=== PATIENT | female | born 1990 | race Caucasian/White ===

== ENCOUNTER 2016-05-29 06:04 | Emergency (ER) | payer MEDICAID, OTHER ==
[~2016-05-29] VITALS: Ht 157.5 cm; Wt 65.8 kg
[~2016-05-29 06:04] MED LIST: BENZ-13 PO; DOCU100C37 PO; IBUP-1780 PO; OXYC-202 PO; OXYC-465 PO; PREN1TAB71 PO; [UNRECOGNIZED DRUG - OTHER]
--- OUTSIDE RECORDS SUMMARY | 2016-05-29 06:10 | XMS REPORT | Continuity of Care Document ---
Author Author [facility] Organization [facility] Address Unknown Phone Unavailable Care Team Providers Care Vibration Technician Name Role Phone [facility] OF PCP Insurance Providers Payer Name Policy Number Subscriber Name Relationship Joyce Kancare Amerigrp [id number] Quyen Hyde 18 Self / Same As Patient Advance Directives Directive Response Recorded Date/Time Advance Directives No 09/29/15 11:40pm Health Care Power of Proprietary Trader No 09/29/15 11:40pm Organ Donor Yes 09/29/15 11:40pm Resuscitation Status Full Code 09/29/15 11:40pm Chief Complaint and Reason for Visit Chief Complaint CTXS,PAIN Reason for Visit labor Problems Active Problems Medical Problem Onset Date Status labor Unknown Acute Medications Current Home Medications Medication Dose Units Route Directions Days/Qty Instructions Start Date Vit/Iron Fumarate/Fa 1 Each 1 Each Oral Daily 09/30/15 Ibuprofen 800 Mg 800 Mg Oral Every 6 Hours 60 10/01/15 Oxycodone Hcl/Acetaminophen 1 Each 1-2 Tab Oral Every 4HRS as needed for Pain 60 10/01/15 Docusate Sodium 100 Mg 100 Mg Oral Twice A Day 60 10/01/15 Past Home Medications Medication Directions Ordered Status [Pren] , 09/11/15 Discontinued Benzonatate 100 Mg Capsule, 100 Mg Oral Twice A Day 09/11/15 Discontinued Social History Social History Problem Response Recorded Date/Time Alcohol Use Denies Use 09/30/2015 8:21am Recreational Drug Use Y Hx of THC use in 201409/30/2015 8:21am Recent Foreign Travel No 09/30/2015 8:21am Recent Infectious Disease Exposure No 09/30/2015 8:21am Hospitalization with Isolation Denies 10/01/2015 7:57pm 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 for patient in 4 weeks. Activity Per routine post vaginal delivery instructions. Diet as tolerated Patient may shower or tub bathe as desired. Care Plan Patient Instructions:: As directed Plan of Care Discharge Date 10/01/15 7:45pm Disposition 01 HOME, SELF-CARE Instructions/Education Provided VAGINAL DELIVERY DISCHARGE Forms Provided PDI Prescriptions See Medication Section Referrals MAGDALENA CHINO MD (Unspecified) - Address: [address] [place] [phone] Reason(s) for Referral: CALL FOR AN APPOINTMENT TO SEE DR. CHINO IN 4 WEEKS. CALL BEFORE IF HAVING ANY PROBLEMS OR QUESTIONS. Care Plan and Goals See Discharge Instructions Section Functional Status Query Response Date Recorded Patient Orientation Person Place Time Situation October 01, 2015 7:57pm Allergies, Adverse Reactions, Alerts No known allergies. Immunizations Name Given Type Hepatitis A No Historical Hepatitis B No Historical Tetanus Booster (TDap) More than 5yrs Historical Tdap 10/01/15 Administered Tdap 10/01/15 Administered Tdap 10/01/15 Administered Vital Signs Acute Vital Signs Vital Response Date/Time Temperature (Fahrenheit) 97.4 degrees F (97.6 - 99.5) 10/01/2015 7:45pm Temperature (Calculated Celsius) 36.95969 degrees C (36.4 - 37.5) 10/01/2015 3:09pm Temperature Source Tympanic 10/01/2015 7:45pm Pulse Rate (adult) 79 bpm (60 - 90) 10/01/2015 7:45pm Respiratory Rate 20 bpm (12 - 24) 10/01/2015 7:45pm O2 Sat by Pulse Oximetry 95 % (88 - 100) 10/01/2015 7:45pm Blood Pressure 115/71 mm Hg 10/01/2015 7:45pm Blood Pressure Mean 86 mm Hg 10/01/2015 3:09pm Pain Pain Intensity 2 10/01/2015 3:09pm Height (Feet) 5 feet 09/29/2015 11:40pm Height (Inches) 3.00 inches 09/29/2015 11:40pm Height (Calculated Centimeters) 160.288230 cm 09/29/2015 11:40pm Weight (Pounds) 187 pounds 09/29/2015 11:40pm Weight (Ounces) 3.0 oz 09/29/2015 11:40pm Weight (Calculated Grams) 53424.823 gm 09/29/2015 11:40pm Weight (Calculated Kilograms) 84.980315 kilograms 09/29/2015 11:40pm Calculated BMI 33.2 09/29/2015 11:40pm Results Laboratory Results Test Name Result Units Flags Reference Collection Date/Time Result Date/ Time Comments Group A Streptococcus Screen NEGATIVE NEGATIVE 09/11/2015 8:00am 8:13am Pending Laboratory Results Test Name Collection Date/Time Microbiology Results Procedure Source Result Collection Date/Time Result Date/Time Throat Culture Throat No Beta Strep isolated 09/11/2015 8:00am 09/12/2015 7:33am Procedures No known history of procedures. Encounters Encounter Location Arrival/Admit Date Discharge/Depart Date Attending Provider Discharged Inpatient [facility] 09/30/15 7:15am 7:45pm MAGDALENA CHINO MD Departed Emergency Room [facility] 09/11/15 7:26am 09/10 8:30am HAYLEY DAVIS MD Recent Diagnosis labor
--- NOTE | 2016-05-29 07:07 | Diagnostic Imaging Report ---
INDICATION: Fall with tailbone pain. FINDINGS: AP and lateral view show a fracture involving the sacrococcygeal region. There is minimal offset noted. Sacrum appears intact. SI joints are symmetrical. IMPRESSION: Fracture of the proximal coccyx at the sacrococcygeal region with minimal displacement. Dictated by: Dictated on workstation # [id number]
--- NOTE | 2016-05-29 07:19 | ED Trauma-Multisystem ---
General Chief Complaint: Trauma-Non Activation Stated Complaint: TAILBONE PAIN-FALL Nursing Triage Note: PT TO ED 6 W/ C/O TAILBONE PAIN. SEE TRAUMA ASSESSMENT Source of Information: Patient Exam Limitations: No Limitations History of Present Illness Time Seen by Provider: 07:14 Initial Comments The patient is a 26-year-old white female who presents with complaints of pain in the area of her tailbone. She reports that 2 nights ago she got up in the night to go to the bathroom. She apparently stepped on a child's toy and fell heavily on her bottom on the hardwood floor. She now experiences considerable pain to sit. She is able to walk or stand with less difficulty. Location Injury Occurred: HOME Occurred: Other Pain/Injury Location: Pelvis Method of Injury: Fall Allergies and Home Medications Allergies Coded Allergies: No Known Drug Allergies (Unverified , 12/21/15) Constitutional: see HPI Eyes: No Symptoms Reported Ears: No Symptoms Reported Nose: No Symptoms Reported Mouth: No Symptoms Reported Throat: No Symptoms to Report Respiratory: no symptoms reported Cardiovascular: No Symptoms Reported Gastrointestinal: no symptoms reported Genitourinary: no symptoms reported Musculoskeletal: other (pain in the area of tailbone) Skin: no symptoms reported Psychiatric/Neurological: No Symptoms Reported Past Qlvjmon-Iluqyz-Jxhnhy Hx Patient Social History Alcohol Use: Denies Use Recreational Drug Use: No Smoking Status: Current Everyday Smoker Type Used: Cigarettes Recent Foreign Travel: No Contact w/Someone Who Travel: No Recent Infectious Disease Expo: No Recent Hopitalizations: No Immunizations Up To Date Tetanus Booster (TDap): More than 5yrs PED Vaccines UTD: Yes Surgeries HX Surgeries: No Respiratory Hx Respiratory Disorders: No Cardiovascular Hx Cardiac Disorders: No Neurological Hx Neurological Disorders: No Reproductive System Hx Reproductive Disorders: Yes (Dysplasia, 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) Female Reproductive Disorders: Denies Genitourinary Hx Genitourinary Disorders: No Gastrointestinal Hx Gastrointestinal Disorders: No Musculoskeletal Hx Musculoskeletal Disorders: No Endocrine Hx Endocrine Disorders: No HEENT HX ENT Disorders: Yes (GLASSES) Loss of Vision: Bilateral Hearing Impairment: Denies Cancer Hx Cancer: No Psychosocial Hx Psychiatric Problems: No Integumentary HX Skin/Integumentary Disorder: No Blood Transfusions Hx Blood Disorders: No Adverse Reaction to a Blood Tr: No (N/A) Family Medical History Family Medial History: Diabetes mellitus 19 FATHER, Onset:40's - 50 PGM, Onset:30's - 40 PGF, Onset:30's - 40 Physical Exam Vital Signs Vital Sign - Last 12Hours 05/29/16 06:10 Temp 97.6 Pulse 90 Resp 20 B/P 110/73 Pulse Ox 99 O2 Delivery Room Air Temperature (Fahrenheit): 97.6 General Appearance: Mild Distress Eyes: Bilateral Eye Normal Inspection Cardiovascular: Regular Rate, Rhythm No Edema No Gallop No JVD No Murmur Normal Peripheral Pulses Respiratory: Chest Non Tender Lungs Clear Normal Breath Sounds No Accessory Muscle Use No Respiratory Distress Comments The patient exhibits a 2 cm in diameter ecchymosis at the apex of the gluteal cleft on the right. There is considerable tenderness to gentle palpation of the sacrum and coccyx [place] Coma Score Best Eye Response (Marisela): (4) Open Spontaneously Best Verbal Response (Marisela): (5) Oriented Best Motor Response (Marisela): (6) Obeys Commands Progress/Results/Core Measures Results/Orders My Orders Orders-HAYLEY DAVIS MD Sacrum And Coccyx (05/29/16 06:33) Vital Signs/I&O Vital Sign - Last 12Hours 05/29/16 06:10 Temp 97.6 Pulse 90 Resp 20 B/P 110/73 Pulse Ox 99 O2 Delivery Room Air Blood Pressure Mean: 85 Departure Communication Progress Notes X-ray shows fracture of tailbone Impression Impression: Primary Impression: Fracture of sacrum and coccyx Disposition: 01 HOME, SELF-CARE Condition: Stable/Unchanged Departure-Patient Inst. Decision time for Depature: 07:20 Referrals: NO,LOCAL PHYSICIAN (PCP) Primary Care Physician Add. Discharge Instructions: All discharge instructions reviewed with patient and/or family. Voiced understanding. This will require 4-6 weeks to heal. You should acquire a donut to sit on. I prefer the gel filled variety. These may be acquired [id number] at any pharmacy. HAYLEY DAVIS MD May 29, 2016 07:19
[2016-05-29 07:29] VITALS: BP 110/73
== END 2016-05-29 07:28 | disposition home or self-care (01) ==
LOC: EDUNIT# 06:04 → ER 06:07
DX: S32.2XXA Fracture of coccyx, initial encounter for closed fracture (principal); F17.210 Nicotine dependence, cigarettes, uncomplicated; W01.0XXA Fall on same level from slipping, tripping and stumbling without subsequent striking against object, initial encounter; Y92.013 Bedroom of single-family (private) house as the place of occurrence of the external cause; Y99.8 Other external cause status
CPT/HCPCS: 72220; 99282

== ENCOUNTER → 2016-12-02 | Outpatient (CLI) | payer OTHER ==
--- NOTE | 2016-12-02 15:51 | Diagnostic Imaging Report ---
PROCEDURE: US Thyroid. TECHNIQUE: Multiple Real-time grayscale images were obtained of the thyroid in various projections. INDICATION: Thyroid nodule. COMPARISON: There are no prior studies available for comparison. FINDINGS: The right lobe of the thyroid is prominent measuring 5.1 x 2.2 x 1.9 cm (Normal gland size 4-5 x 2 x 2 cm or less). The left lobe measures 4.2 x 1.9 x 1.7 cm. Within the midportion of the left lobe, there is a fairly well-circumscribed 0.9 x 1.1 x 0.7 cm hypoechoic area. The right lobe of the thyroid is homogeneous. IMPRESSION: There is a small roughly 1 cm hypoechoic lesion in the left lobe of the thyroid. This is of uncertain etiology although in a patient of this age, it is most likely benign. If previous exams are available, they would be helpful for comparison. If there are no prior studies, then a short-term (3 month) followup thyroid ultrasound exam should be obtained. The thyroid gland is otherwise unremarkable. Dictated by: Dictated on workstation # [id number]
== END ==
LOC: RAD 14:13
PROVIDERS: ATTEND Obstetrics & Gynecology
DX: E04.1 Nontoxic single thyroid nodule (principal)
CPT/HCPCS: 76536

== ENCOUNTER 2018-09-04 12:14 | Inpatient (IN) | payer BC, OTHER ==
[~2018-09-04] VITALS: Ht 160 cm; Wt 89.8 kg
--- NOTE | 2018-09-04 12:10 | NUR ---
JENN HYDE presented to unit via w/c from dr rafita, accompanied by staff, with c/o PROTEINURIA. JENN HYDE weighed, gowned, voided, and to bed. EFHM and TOCO applied, VS taken. JENN HYDE oriented to bed controls, call light, TV, heat, and A/C controls.
[~2018-09-04 12:14] MED LIST changes: -DOCU-143 PO; -OXYC1TAB87 PO
[2018-09-04 12:32] VITALS: BP 112/61
[2018-09-04 12:43] LABS: BASOPHILS % (AUTO) 0 % (0-10); EOSINOPHILS # (AUTO) 0.4 10^3/uL (0.0-0.3); EOSINOPHILS % (AUTO) 3 % (0-10); HEMATOCRIT 29 % (35-52); HEMOGLOBIN 9.9 G/DL (11.5-16.0); LYMPHOCYTES # (AUTO) 1.7 X 10^3 (1.0-4.0); LYMPHOCYTES % (AUTO) 14 % (12-44); MEAN CORPUSCULAR HEMOGLOBIN 32 PG (25-34); MEAN CORPUSCULAR HGB CONC 35 G/DL (32-36); MEAN CORPUSCULAR VOLUME 92 FL (80-99); MEAN PLATELET VOLUME 11.1 FL (7.4-10.4); MONOCYTES # (AUTO) 0.8 X 10^3 (0.0-1.0); MONOCYTES % (AUTO) 7 % (0-12); NEUTROPHILS # (AUTO) 8.9 X 10^3 (1.8-7.8); NEUTROPHILS % (AUTO) 75 % (42-75); PLATELET COUNT 215 10^3/uL (130-400); RED CELL DISTRIBUTION WIDTH 13.9 % (10.0-14.5); WHITE BLOOD COUNT 11.8 10^3/uL (4.3-11.0)
[2018-09-04 13:06] LABS: ALANINE AMINOTRANSFERASE 14 U/L (0-55); ALKALINE PHOSPHATASE 155 U/L (40-136); BILIRUBIN,TOTAL 0.3 MG/DL (0.1-1.0); BUN/CREATININE RATIO 14; CALCIUM 8.4 MG/DL (8.5-10.1); CARBON DIOXIDE 23 MMOL/L (21-32); CHLORIDE 108 MMOL/L (98-107); CREATININE SERUM 0.58 MG/DL (0.60-1.30); GFR ESTIMATED > 60; GLUCOSE 107 MG/DL (70-105); POTASSIUM 3.5 MMOL/L (3.6-5.0); SODIUM 136 MMOL/L (135-145); TOTAL PROTEIN 5.5 GM/DL (6.4-8.2); URIC ACID 3.6 MG/DL (2.6-7.2)
--- NOTE | 2018-09-04 13:18 | NUR ---
dr benavides notified of patient lab results and fhr / contraction pattern. new orders received.
--- NOTE | 2018-09-04 13:44 | NUR ---
rare contraction noted. FHR accelerations noted. no decelerations in FHR. moderate variability noted. patient reports FM. baseline is 125.
[2018-09-04] MEDS: D5 LR IV SOLUTION 1,000 ML IV SCH (15:00)
--- NOTE | 2018-09-04 17:00 | NUR ---
Report received from Zena Garza RN
[2018-09-04 17:10] VITALS: BP 113/56
[2018-09-04 18:15] VITALS: BP 113/55
--- NOTE | 2018-09-04 19:00 | NUR ---
Dr العراقي to pt bedside and plan of care reviewed and new orders received.
[2018-09-04 19:15] VITALS: BP 133/64
--- NOTE | 2018-09-04 20:48 | History & Physical ---
History and Physical Date Seen by Provider: September 04, 2018 Time Seen by Provider: 20:44 This patient is a 27-year-old G3 2 white female with an EDC of 6 1019 putting her now at 38-4/7 weeks' gestation. She was seen in clinic on this date found have proteinuria and a 48 pound weight gain with this Urine protein creatinine ratio was 0.25. Patient was admitted for observation and management this evening. Plan is for delivery tomorrow as her lab work was normal she is clearly developing preeclampsia but with mild preeclampsia rather than induce in the night we will induce tomorrow patient denies rupture membranes or bleeding. She's had 2 vaginal deliveries past was spontaneous labor at just before 38 weeks gestation. She's had no other problems with his to date. She did have an ultrasound today showed an MICKIE of 53 which is on the very low end of the normal range. GBS culture was negative. Allergies are none Medications are vitamins Medical social and surgical histories are per the antepartum record. HEENT exam is normal Neck supple no lymphadenopathy no thyromegaly Abdomen is gravid soft nontender nondistended Extremities show no clubbing or cyanosis. There is no Homans sign. Pelvic Exam is pending. Laboratory Tests Test 09/04/18 12:35 Range/Units White Blood Count 11.8 H 4.3-11.0 10^3/uL Red Blood Count 3.12 L 4.35-5.85 10^6/uL Hemoglobin 9.9 L 11.5-16.0 G/DL Hematocrit 29 L 35-52 % Mean Corpuscular Volume 92 80-99 FL Mean Corpuscular Hemoglobin 32 25-34 PG Mean Corpuscular Hemoglobin Concent 35 32-36 G/DL Red Cell Distribution Width 13.9 10.0-14.5 % Platelet Count 215 130-400 10^3/uL Mean Platelet Volume 11.1 H 7.4-10.4 FL Neutrophils (%) (Auto) 75 42-75 % Lymphocytes (%) (Auto) 14 12-44 % Monocytes (%) (Auto) 7 0-12 % Eosinophils (%) (Auto) 3 0-10 % Basophils (%) (Auto) 0 0-10 % Neutrophils # (Auto) 8.9 H 1.8-7.8 X 10^3 Lymphocytes # (Auto) 1.7 1.0-4.0 X 10^3 Monocytes # (Auto) 0.8 0.0-1.0 X 10^3 Eosinophils # (Auto) 0.4 H 0.0-0.3 10^3/uL Basophils # (Auto) 0.0 0.0-0.1 10^3/uL Sodium Level 136 135-145 MMOL/L Potassium Level 3.5 L 3.6-5.0 MMOL/L Chloride Level 108 H 98-107 MMOL/L Carbon Dioxide Level 23 21-32 MMOL/L Anion Gap 5 5-14 MMOL/L Blood Urea Nitrogen 8 7-18 MG/DL Creatinine 0.58 L 0.60-1.30 MG/DL Estimat Glomerular Filtration Rate > 60 BUN/Creatinine Ratio 14 Glucose Level 107 H 70-105 MG/DL Uric Acid 3.6 2.6-7.2 MG/DL Calcium Level 8.4 L 8.5-10.1 MG/DL Corrected Calcium 9.2 8.5-10.1 MG/DL Total Bilirubin 0.3 0.1-1.0 MG/DL Aspartate Amino Transf (AST/SGOT) 12 5-34 U/L Alanine Aminotransferase (ALT/SGPT) 14 0-55 U/L Alkaline Phosphatase 155 H 40-136 U/L Lactate Dehydrogenase 127 125-220 U/L Total Protein 5.5 L 6.4-8.2 GM/DL Albumin 3.0 L 3.2-4.5 GM/DL Assessment and plan term at 37-4/7 weeks' gestation with a patient w ith significant proteinuria and 48 pound weight gain. And with oligohydramnios. Plan is for observation and hydration tonight and delivery under the influence of Pitocin. Preeclampsia and oligohydramnios Allergies and Home Medications Allergies Coded Allergies: No Known Drug Allergies (Unverified , 12/21/15) Patient Home Medication List Home Medication List Reviewed: Yes Clinical Quality Measures DVT/VTE Risk/Contraindication: Risk Factor Score Per Nursin RFS Level Per Nursing on Admit: 3=High MAGDALENA CHINO MD September 04, 2018 20:48
[2018-09-04] MEDS ORDERED: D5 LR IV SOLUTION 1,000 ML IV SCH (22:54)
[2018-09-05] VITALS (49 sets, daily range): BP systolic 91–142; BP diastolic 53–80
[2018-09-05] MEDS: D5 LR IV SOLUTION 1,000 ML IV SCH (02:40)
[2018-09-05] MEDS ORDERED: OXYTOCIN/NORMAL SALINE 500 ML IV SCH ×3 (06:00→14:18)
[2018-09-05] MEDS ORDERED: CATHETER FLUSH 10 ML SYR IV SCH (06:00)
--- NOTE | 2018-09-05 07:30 | Progress Note-Standard ---
Standard Progress Note Progress Notes/Assess & Plan Date Seen by a Provider: September 05, 2018 Time Seen by a Provider: 07:28 Progress/Assessment & Plan This patient is without complaint. She was stable to the evening. She denies headache, denies shortness of breath, nausea vomiting, denies ruptured membranes or bleeding. She does feel baby moving and has occasional contraction. She does feel increased pressure in her pelvis. Vital Signs Date Time Temp Pulse Resp B/P (MAP) Pulse Ox O2 Delivery O2 Flow Rate FiO2 09/05/18 05:40 97.3 75 18 109/62 (78) Room Air 09/05/18 02:20 98.6 86 18 107/62 (77) 98 Room Air 09/04/18 19:15 94 18 133/64 (87) Room Air 09/04/18 18:15 83 18 113/55 (74) Room Air 09/04/18 17:10 82 18 113/56 (75) Room Air 09/04/18 12:32 98.0 93 20 112/61 (78) Room Air I & O 09/05/18 07:00 Intake Total 1000 ml Balance 1000 ml vital signs are stable and normal The abdomen is benign and gravid and nontender. Extremities show no clubbing or cyanosis. Homans sign. Pelvic exam is pending Assessment and plan 37-5/7 weeks' gestation with oligohydramnios and early preeclampsia. Plan is for Pitocin induction of labor in anticipation is for vaginal delivery MAGDALENA CHINO MD September 05, 2018 07:30
[2018-09-05] MEDS ORDERED: D5 LR IV SOLUTION 1,000 ML IV SCH (07:32)
[2018-09-05] MEDS ORDERED: IBUP-1780 PO (07:36)
[2018-09-05] MEDS ORDERED: DOCU-143 PO (07:36)
[2018-09-05] MEDS ORDERED: OXYC1TAB87 PO (07:36)
--- NOTE | 2018-09-05 07:38 | Discharge Instructions ---
Discharge Instructions Discharge Medications New, Converted or Re-Newed RX: RX on Chart Patient Instructions Patient Instructions: As directed Return to The Hospital For: As directed Activity & Diet Discharge Diet: No Restrictions Activity as Tolerated: No Orders-Post D/C & Referrals Follow Up Appt: Call to make follow up appt. for patient in 4 weeks. Activity Per routine post vaginal delivery instructions. Please call in RX to patient pharmacy. Diet as tolerated Patient may shower or tub bathe as desired. MAGDALENA CHINO MD September 05, 2018 07:37
[2018-09-05] MEDS ORDERED: SUFENTA 0.6MCG/ML BUPIVA 0.125 100 ML ONE (08:03)
--- NOTE | 2018-09-05 08:07 | NUR ---
Getachew Marinelli, OSD CLERK notified of epidural request
[2018-09-05] MEDS ORDERED: BUPIVACAINE 0.25% 30 ML (SENSORCAINE) VIAL ONE (08:31)
[2018-09-05] MEDS ORDERED: fentaNYL INJECTION 100 MCG/2 ML AMP ONE (08:32)
--- NOTE | 2018-09-05 08:36 | NUR ---
Getachew Marinelli CRNA here for epidural placement. Procedure explained, consent reviewed and signed by anesthesia. Questions answered to patient's satisfaction. Time out taken to verify correct patient/procedure. Patient up to side of bed, assisted into sitting position. Betadine prep done x3 and sterile drape applied. Local done, see anesthesia record. Test dose given, see anesthesia record for drug and dosage. Epidural catheter secured in place. Epidural placement complete. Assisted back into bed, monitors adjusted. Epidural dosed, see anesthesia record. Epidural of Sufenta/Bupvicaine @ 10 cc/hr stated per pump. Patient tolerated procedure well.
[2018-09-05] MEDS ORDERED: LACTATED RINGERS 1,000 ML IV ONE (09:12)
[2018-09-05] MEDS ORDERED: NALOXONE 0.4 MG/ML 1 ML (NARCAN) VIAL IV PRN (09:15)
[2018-09-05] MEDS ORDERED: CATHETER FLUSH 10 ML SYR IV PRN (09:15)
[2018-09-05] MEDS ORDERED: EPIDURAL (SUFENTA 0.6MCG/ML BUPIVA 0.125%) 100 ML BAG EPI SCH (09:15)
[2018-09-05] MEDS ORDERED: LIDOCAINE/EPI 2% 1:200,00 (XYLOCAINE) 10 ML VIAL ONE (13:24)
[2018-09-05] MEDS ORDERED: BENZOCAINE/MENTHOL (DERMOPLAST) 56 ML CAN TP PRN (14:30)
[2018-09-05] MEDS ORDERED: ONDANSETRON 4 MG/2 ML (SDV) Z0FRAN IVP PRN (14:30)
[2018-09-05] MEDS ORDERED: MEASLES,MUMPS,RUBELLA 1 EA INJ SC ONE (14:30)
[2018-09-05] MEDS ORDERED: TETANUS,DIPTH,PERTUSS P/F (BOOSTRIX) 0.5 ML VIAL IM ONE (14:30)
[2018-09-05] MEDS ORDERED: IBUPROFEN 800 MG (MOTRIN) TAB PO ONE ×2 (14:50→14:52)
[2018-09-05] MEDS: IBUPROFEN 800 MG (MOTRIN) TAB PO SCH ×2 (15:00→21:27)
--- NOTE | 2018-09-05 16:30 | NUR ---
To room to move pt to room. Pt eating and visiting with family, desires to move after. Will page RN when ready. Denies any needs or concerns at this time.
--- NOTE | 2018-09-05 17:30 | NUR ---
Pt called out for RN, ready to transfer to PP room at this time. Family at bedside transferring personal belongings to PP room. Pericare performed and underwear applied. Pt ambulates to bathroom without difficulty, +void. Clean gown on. Pt ambulates self to room 310 accompanied by RN. Pt oriented to room and call light, packet explained. Pt requesting tucks, dermoplast, and ice pack, will provide. Pt denies further needs or concerns at this time
[2018-09-05] MEDS ORDERED: WITCH HAZEL(TUCKS) 40 EA JAR TOP PRN (18:00)
[2018-09-05] MEDS: oxyCODONE/APAP 5/325MG (PERCOCET 5) TABLET PO PRN ×2 (18:28→23:14)
--- NOTE | 2018-09-05 18:44 | OPERATIVE REPORT ---
DATE OF SERVICE: 09/05/2018 DELIVERY NOTE The patient delivered by term spontaneous vaginal delivery of a viable male infant with Apgars of 8 and 9 at 1 and 5 minutes respectively, weight of 6 pounds 9 ounces. time was 1336. Cord blood gas was 7.35. The was delivered over a first-degree perineal laceration under epidural analgesia. The was bulb suctioned on delivery of the head and again on completion of delivery, the umbilical cord was doubly clamped, father cut the cord and baby was passed to mom's abdomen. The placenta delivered very promptly spontaneously Cruz. It was normal with a 3-vessel cord. The cervix, vagina, rectum and perineum were examined and found intact, except for a first-degree perineal laceration that was repaired with a single suture of 3-0 Vicryl Rapide in the usual manner under the epidural augmented with local analgesia infiltrated into the perineal body. Sponge and needle counts were correct on completion of delivery and repair. The patient tolerated the delivery and repair well and remained in the LDR for recovery. The baby remained with the mom. Estimated blood loss was around 100 mL. Job ID: [id number] DocumentID: [id number] Dictated Date: 09/05/2018 13:56:38 Recreation Professor Date: 09/05/2018 18:43:35 Dictated By: MAGDALENA CHINO MD
[2018-09-05] MEDS ORDERED: WITCH HAZEL(TUCKS) 40 EA JAR ONE (19:42)
[2018-09-05] MEDS: DOCUSATE SODIUM 100 MG (COLACE) CAP PO SCH (21:27)
[2018-09-06 03:30] VITALS: BP 105/70
[2018-09-06] MEDS: IBUPROFEN 800 MG (MOTRIN) TAB PO SCH ×3 (03:36→15:48)
[2018-09-06 08:30] VITALS: BP 107/60
[2018-09-06] MEDS: DOCUSATE SODIUM 100 MG (COLACE) CAP PO SCH (10:06)
[2018-09-06 10:10] VITALS: BP 110/68
--- NOTE | 2018-09-06 11:44 | Anesthesia-Regional Post-Op ---
Regional Patient Condition Mental Status: Alert, Oriented x3 Circulation: Same as Pre-Op Headache: Absent Sensation: Full Recovery Motor Block: Absent Post Op Complications Complications None Follow Up Care/Instructions Patient Instructions Advised pt of H/A possibility due to dural puncture during epidural placement. I encouraged pt to drink plenty of liquids and caffeine. If she should develop a significant H/A in the next couple of days to not hesitate to return to ER for evaluation and possible blood patch. Anesthesia/Patient Condition Patient is doing well, no complaints, stable vital signs, no apparent adverse anesthesia problems. No complications reported per nursing. D/C home per [facility] Criteria: Yes SAAEL CALLAWAY CRNA September 06, 2018 11:44
--- NOTE | 2018-09-06 13:00 | NUR ---
Dr. العراقي here to see pt. Pt may D/C home today as long as infant is D/C'd as well
--- NOTE | 2018-09-06 13:07 | Progress Note-Standard ---
Standard Progress Note Progress Notes/Assess & Plan Date Seen by a Provider: September 06, 2018 Time Seen by a Provider: 13:06 Progress/Assessment & Plan This patient is without complaint. She was stable to the evening. She denies headache, denies shortness of breath, nausea vomiting, denies ruptured membranes or bleeding. She does feel baby moving and has occasional contraction. She does feel increased pressure in her pelvis. Vital Signs Date Time Temp Pulse Resp B/P (MAP) Pulse Ox O2 Delivery O2 Flow Rate FiO2 09/05/18 05:40 97.3 75 18 109/62 (78) Room Air 09/05/18 02:20 98.6 86 18 107/62 (77) 98 Room Air 09/04/18 19:15 94 18 133/64 (87) Room Air 09/04/18 18:15 83 18 113/55 (74) Room Air 09/04/18 17:10 82 18 113/56 (75) Room Air 09/04/18 12:32 98.0 93 20 112/61 (78) Room Air I & O 09/05/18 07:00 Intake Total 1000 ml Balance 1000 ml vital signs are stable and normal The abdomen is benign and gravid and nontender. Extremities show no clubbing or cyanosis. Homans sign. Pelvic exam is pending Assessment and plan 37-5/7 weeks' gestation with oligohydramnios and early preeclampsia. Plan is for Pitocin induction of labor in anticipation is for vaginal delivery September 06, 2018 Patient is without complaint. She is ambulating, voiding, tolerating oral intake well and has good pain control. Patient is requesting discharge home. Vital Signs Date Time Temp Pulse Resp B/P (MAP) Pulse Ox O2 Delivery O2 Flow Rate FiO2 09/06/18 08:30 98.3 70 18 107/60 (76) 96 Room Air 09/06/18 03:30 97.3 65 20 105/70 (82) 96 Room Air 09/05/18 23:20 97.7 69 16 131/79 (96) 96 Room Air 09/05/18 19:41 97.4 79 18 119/74 (89) 96 Room Air 09/05/18 15:30 98.5 83 16 106/58 (74) Room Air 09/05/18 15:14 81 16 107/56 (73) Room Air 09/05/18 14:59 74 16 110/57 (74) Room Air 09/05/18 14:45 93 16 112/56 (74) Room Air 09/05/18 14:30 75 16 116/59 (78) Room Air 09/05/18 14:15 98.8 83 16 110/68 (82) Room Air 09/05/18 14:00 86 16 119/65 (83) Room Air 09/05/18 13:30 98.0 123 24 134/80 (98) Room Air 09/05/18 13:15 93 18 103/54 (70) Room Air I & O 09/06/18 07:00 Intake Total 2800 ml Balance 2800 ml Vital signs are stable. Patient is afebrile. Abdomen is benign. The fundus is firm below the umbilicus and nontender. Extremities show no clubbing cyanosis. No Homans sign. Assessment and plan day number 1 status post spontaneous vaginal delivery doing well. Plan is for discharge home tomorrow however patient requests discharge home today and baby is ready to go we will discharge today at her request Final Diagnosis Spontaneous vaginal delivery MAGDALENA CHINO MD September 06, 2018 13:07
[2018-09-06] MEDS ORDERED: TETANUS,DIPTH,PERTUSS P/F (BOOSTRIX) 0.5 ML VIAL IM ONE (15:38)
--- NOTE | 2018-09-06 16:28 | NUR ---
Discharge instructions explained to pt with copy provided to pt along with Percocet script. Pt notified of need to schedule follow up. Pt verbalizes understanding of instruction, and signs to verify. Denies questions at this time. Pt requests Percocet and extra pads/underwear/bath wipes. All provided.
[2018-09-06] MEDS: oxyCODONE/APAP 5/325MG (PERCOCET 5) TABLET PO PRN (16:32)
--- NOTE | 2018-09-06 16:35 | NUR ---
Pt ambulates off unit accompanied by Davonte Drummond RN to private vehicle with all personal belongings. No s/s of distress noted.
== END 2018-09-06 16:35 | disposition home or self-care (01) | DRG 806 ==
LOC: LDRP 12:14 → WSo 12:14 → LDRP 19:15 → WSo 19:15 → LDRP 09-05 17:30
PROVIDERS: ADMIT Obstetrics & Gynecology; ATTEND Obstetrics & Gynecology
PROC: 3E033VJ Introduction of Other Hormone into Peripheral Vein, Percutaneous Approach (ICD-10-PCS; 2018-09-04)
PROC: 10E0XZZ Delivery of Products of Conception, External Approach (ICD-10-PCS; principal; 2018-09-05)
PROC: 0HQ9XZZ Repair Perineum Skin, External Approach (ICD-10-PCS; 2018-09-05)
DX: O14.94 Unspecified pre-eclampsia, complicating childbirth (principal); O41.03X0 Oligohydramnios, third trimester, not applicable or unspecified; O70.0 First degree perineal laceration during delivery; Z3A.37 37 weeks gestation of pregnancy; Z37.0 Single live birth; Z23 Encounter for immunization
CPT/HCPCS: 36415; 80053; 83615; 84550; 85025; 90715

== ENCOUNTER → 2018-09-04 | Outpatient (CLI) | payer BC, OTHER ==
[~2018-09-04] MED LIST changes: -BENZ-13 PO; +BENZ100C18 PO; +DOCU-143 PO; -OXYC-202 PO; +OXYC1TAB12 PO; +OXYC1TAB87 PO
== END ==
LOC: LABNPT 09:09
PROVIDERS: ATTEND Obstetrics & Gynecology
DX: O28.8 Other abnormal findings on antenatal screening of mother (principal)
CPT/HCPCS: 82570; 84156

== ENCOUNTER 2018-09-07 12:56 | Emergency (ER) | payer BC, OTHER ==
[~2018-09-07] VITALS: Ht 160 cm; Wt 89.8 kg
[~2018-09-07 12:56] MED LIST changes: +DOCU-143 PO; +OXYC1TAB87 PO
[2018-09-07] MEDS ORDERED: fentaNYL INJECTION 100 MCG/2 ML AMP IVP ONE (13:30)
--- NOTE | 2018-09-07 13:32 | ED Headache ---
General Chief Complaint: Head/Cervical Problems Stated Complaint: HEADACHE Nursing Triage Note: PT HAD EPIDURAL ON FRIDAY FOR OF HER SON, STATES ANETHESIA TOLD HER SHE HAD A "WET TAP" AND WAS TOLD TO PRESENT TO HOSPITAL IF HEADACHES OCCURED AND INCREASED, PT STATES SHE HAS HAD TO HAVE A BLOOD PATCH WITH A PREVIOUS EPIDURAL Nursing Sepsis Screen: No Definite Risk Source: patient Exam Limitations: no limitations History of Present Illness Date Seen by Provider: September 07, 2018 Time Seen by Provider: 14:15 Initial Comments 28-year-old female who presents to the emergency room with complaints of a spinal headache. She delivered her son 2 days ago and had an epidural during delivery and was informed that she had a wet tap and could potentially have migraine headaches. She has had have previous blood patches with epidurals for her other deliveries. Associated Symptoms: denies symptoms Allergies and Home Medications Allergies Coded Allergies: No Known Drug Allergies (Unverified , 09/07/18) Home Medications Docusate Sodium 100 Mg Capsule, 100 MG PO BID Prescribed by: MAGDALENA ADKINS on 09/05/18 0736 Ibuprofen 800 Mg Tablet, 800 MG PO Q6H PRN for PAIN Prescribed by: MAGDALENA ADKINS on 09/05/18 0736 Oxycodone HCl/Acetaminophen 1 Each Tablet, 1 TAB PO Q4H Prescribed by: MAGDALENA ADKINS on 09/05/18 0736 Patient Home Medication List Home Medication List Reviewed: Yes Review of Systems Review of Systems Constitutional: see HPI; No chills, No fever : No Psychiatric/Neurological: See HPI, Headache All Other Systems Reviewed Negative Unless Noted: Yes Past Vkxabba-Epxyfx-Lxrvjp Hx Past Med/Social Hx: Reviewed Nursing Past Med/Soc Hx Patient Social History Alcohol Use: Denies Use Recreational Drug Use: No Type Used: Cigarettes Recent Foreign Travel: No Contact w/Someone Who Travel: No Recent Infectious Disease Expo: No Recent Hopitalizations: No Immunizations Up To Date Tetanus Booster (TDap): More than 5yrs PED Vaccines UTD: Yes Past Medical History Surgeries: No Respiratory: No Cardiac: No Neurological: No : No Last Menstrual Period: September 07, 2018 Reproductive Disorders: Yes (Dysplasia, 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 Reproductive Disorders: Denies 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) Genitourinary: No Gastrointestinal: No Musculoskeletal: No Endocrine: No HEENT: No Loss of Vision: Bilateral Hearing Impairment: Denies Cancer: No Psychosocial: No Integumentary: No Blood Disorders: No Adverse Reaction/Blood Tranf: No (N/A) Family Medical History Reviewed Nursing Family Hx Diabetes mellitus 19 FATHER, Onset:40's - 50 PGM, Onset:30's - 40 PGF, Onset:30's - 40 Physical Exam Vital Signs Vital Signs - First Documented 09/07/18 09/07/18 13:01 15:43 Temp 98.1 Pulse 84 Resp 16 B/P (MAP) 141/97 (112) Pulse Ox 98 O2 Delivery Room Air Capillary Refill : Less Than 3 Seconds Height, Weight, BMI Height: 5'3.00" Weight: 198lbs. 0.6oz. [id number]; 35.1 BMI Method:Stated General Appearance: WD/WN, no apparent distress Cardiovascular: normal peripheral pulses, regular rate, rhythm, no edema, no gallop, no JVD, no murmur Respiratory: chest non-tender, lungs clear, normal breath sounds, no respiratory distress, no accessory muscle use Extremities: normal capillary refill Crainal Nerves: normal hearing, normal speech, PERRL Coordination/Gait: normal finger to nose, normal gait Motor/Sensory: no motor deficit, no sensory deficit Skin: normal color, warm/dry Progress/Results/Core Measures Results/Orders Lab Results Laboratory Tests Test 09/07/18 13:33 Range/Units White Blood Count 9.2 4.3-11.0 10^3/uL Red Blood Count 3.37 L 4.35-5.85 10^6/uL Hemoglobin 10.5 L 11.5-16.0 G/DL Hematocrit 31 L 35-52 % Mean Corpuscular Volume 92 80-99 FL Mean Corpuscular Hemoglobin 31 25-34 PG Mean Corpuscular Hemoglobin Concent 34 32-36 G/DL Red Cell Distribution Width 13.8 10.0-14.5 % Platelet Count 229 130-400 10^3/uL Mean Platelet Volume 10.7 H 7.4-10.4 FL Neutrophils (%) (Auto) 73 42-75 % Lymphocytes (%) (Auto) 15 12-44 % Monocytes (%) (Auto) 8 0-12 % Eosinophils (%) (Auto) 4 0-10 % Basophils (%) (Auto) 0 0-10 % Neutrophils # (Auto) 6.7 1.8-7.8 X 10^3 Lymphocytes # (Auto) 1.4 1.0-4.0 X 10^3 Monocytes # (Auto) 0.8 0.0-1.0 X 10^3 Eosinophils # (Auto) 0.3 0.0-0.3 10^3/uL Basophils # (Auto) 0.0 0.0-0.1 10^3/uL Sodium Level 139 135-145 MMOL/L Potassium Level 3.9 3.6-5.0 MMOL/L Chloride Level 107 98-107 MMOL/L Carbon Dioxide Level 22 21-32 MMOL/L Anion Gap 10 5-14 MMOL/L Blood Urea Nitrogen 13 7-18 MG/DL Creatinine 0.62 0.60-1.30 MG/DL Estimat Glomerular Filtration Rate > 60 BUN/Creatinine Ratio 21 Glucose Level 83 70-105 MG/DL Calcium Level 8.9 8.5-10.1 MG/DL Corrected Calcium 9.5 8.5-10.1 MG/DL Total Bilirubin 0.2 0.1-1.0 MG/DL Aspartate Amino Transf (AST/SGOT) 9 5-34 U/L Alanine Aminotransferase (ALT/SGPT) 14 0-55 U/L Alkaline Phosphatase 158 H 40-136 U/L Total Protein 6.0 L 6.4-8.2 GM/DL Albumin 3.2 3.2-4.5 GM/DL My Orders Orders - JADEN RODRIGUEZ Cbc With Automated Diff (09/07/18 13:16) Comprehensive Metabolic Panel (09/07/18 13:16) Ed Iv/Invasive Line Start (09/07/18 13:28) Fentanyl Injection (Sublimaze Injection (09/07/18 13:30) Medications Given in ED Vital Signs/I&O 09/07/18 09/07/18 13:01 15:43 Temp 98.1 98.2 Pulse 84 86 Resp 16 16 B/P (MAP) 141/97 (112) 122/83 (96) Pulse Ox 98 O2 Delivery Room Air Blood Pressure Mean: 112 Progress Progress Note : Time: 13:20 Progress Note Nikunj Diaz CRNA was called for blood patch at this time. 1430: Nikunj Diaz [employer] PROCESSING TECHNICIAN her for blood patch at this time. 1510: She is pain free at this time. She agrees with plan of care, plans for discharge, return precautions were given. Departure Impression Primary Impression: Spinal headache Disposition: HOME, SELF-CARE Condition: Stable/Unchanged Departure-Patient Inst. Decision time for Depature: 15:26 Referrals: NO,LOCAL PHYSICIAN (PCP/Family) Primary Care Physician Patient Instructions: Epidural Blood Patch (DC), HEADACHE Add. Discharge Instructions: Follow-up with your primary care provider within 1 week for recheck. Return back to the emergency room for worsening symptoms or concerns as needed. All discharge instructions reviewed with patient and/or family. Voiced understanding. JADEN RODRIGUEZ September 07, 2018 13:32
[2018-09-07 13:40] LABS: BASOPHILS % (AUTO) 0 % (0-10); EOSINOPHILS # (AUTO) 0.3 10^3/uL (0.0-0.3); EOSINOPHILS % (AUTO) 4 % (0-10); HEMATOCRIT 31 % (35-52); HEMOGLOBIN 10.5 G/DL (11.5-16.0); LYMPHOCYTES # (AUTO) 1.4 X 10^3 (1.0-4.0); LYMPHOCYTES % (AUTO) 15 % (12-44); MEAN CORPUSCULAR HEMOGLOBIN 31 PG (25-34); MEAN CORPUSCULAR HGB CONC 34 G/DL (32-36); MEAN CORPUSCULAR VOLUME 92 FL (80-99); MEAN PLATELET VOLUME 10.7 FL (7.4-10.4); MONOCYTES # (AUTO) 0.8 X 10^3 (0.0-1.0); MONOCYTES % (AUTO) 8 % (0-12); NEUTROPHILS # (AUTO) 6.7 X 10^3 (1.8-7.8); NEUTROPHILS % (AUTO) 73 % (42-75); PLATELET COUNT 229 10^3/uL (130-400); RED CELL DISTRIBUTION WIDTH 13.8 % (10.0-14.5); WHITE BLOOD COUNT 9.2 10^3/uL (4.3-11.0)
[2018-09-07 14:01] LABS: ALANINE AMINOTRANSFERASE 14 U/L (0-55); ALBUMIN 3.2 GM/DL (3.2-4.5); ALKALINE PHOSPHATASE 158 U/L (40-136); BILIRUBIN,TOTAL 0.2 MG/DL (0.1-1.0); BUN/CREATININE RATIO 21; CALCIUM 8.9 MG/DL (8.5-10.1); CARBON DIOXIDE 22 MMOL/L (21-32); CHLORIDE 107 MMOL/L (98-107); CREATININE SERUM 0.62 MG/DL (0.60-1.30); GFR ESTIMATED > 60; GLUCOSE 83 MG/DL (70-105); POTASSIUM 3.9 MMOL/L (3.6-5.0); SODIUM 139 MMOL/L (135-145)
--- NOTE | 2018-09-07 14:23 | NUR ---
ASSISTED REFRIGERATION INSTALLER WITH BEDSIDE EPIDURAL BLOOD PATCH, PT KAUR WELL, PT STATES HER HEADACHE IS NOW RESOLVED, PT LYING FLOT ON STRETCHER, PT SHOWS NO S/S OF DISTRESS, PT DENIES ANY C/O OR NEEDS AT THIS TIME, VS ASSESSED AND STABLE, WILL CONTINUE TO MONITOR
--- NOTE | 2018-09-07 15:07 | NUR ---
ROUNDED ON PT, PT SITTING ON SIDE OF BED, PT STATES SHE IS FEELING MUCH BETTER AND THAT HEAD ACHE IS NOW AT A 1, PT STATES SHE IS READY FOR DISCHARGE, VS ASSESSED AND STABLE
[2018-09-07 15:43] VITALS: BP 122/83
== END 2018-09-07 15:45 | disposition home or self-care (01) ==
LOC: EDUNIT# 12:56 → ER 12:57
DX: O89.4 Spinal and epidural anesthesia-induced headache during the puerperium (principal); R51 Headache; Z87.448 Personal history of other diseases of urinary system; Z86.19 Personal history of other infectious and parasitic diseases
CPT/HCPCS: 36415; 80053; 85025; 96374

== ENCOUNTER 2019-03-07 16:46 | Emergency (ER) | payer BC, MEDICAID ==
[~2019-03-07] VITALS: Ht 157.5 cm; Wt 74.9 kg
[2019-03-07] MEDS ORDERED: RT-ALBUTEROL/IPRATROPIUM 3 ML (DUONEB) VIAL INH ONE (18:00)
--- NOTE | 2019-03-07 18:10 | Diagnostic Imaging Report ---
INDICATION: Shortness of breath and cough. PA and lateral chest FINDINGS: Heart size and pulmonary vascularity are normal. Lungs are clear. There are no effusions or pneumothoraces. IMPRESSION: Negative chest. Dictated by: Dictated on workstation # [id number]
[2019-03-07] MEDS ORDERED: predniSONE 20 MG TAB PO ONE (18:15)
[2019-03-07] MEDS ORDERED: PRD20T PO (18:27)
--- NOTE | 2019-03-07 18:27 | ED Respiratory ---
General Chief Complaint: Exposure Stated Complaint: COUGH/SOB Nursing Triage Note: PT AMBULATE TO TRIAGE WITH C/O COUGH. 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 PT REPORTS THAT THE COUGH NOW OCCURS EVEN WHEN NOT AT WORK. HER EMPLOYER TOLD HER TO COME TO THE ED VS SCHEDULING AN APPT AT A DR OFFICE. PT STATES THAT EMPLOYER STATED THAT IT WOULD BE QUICKER TO COME TO ED THAT WAIT FOR AN APPT AT A DOCTOR'S OFFICE. Source: patient Exam Limitations: no limitations History of Present Illness Date Seen by Provider: Mar 07, 2019 Time Seen by Provider: 17:35 Initial Comments This 28-year-old young lady presents to the emergency room with complaints of difficulty breathing and wheezing. She was seen at the [facility] walk-in clinic recently was prescribed an inhaler. She reports sometimes the inhaler works but sometimes she is so short of breath that she cannot inhale the medication well. She works at a [employer]. She states her symptoms are worse when she is in the work environment where there are fumes and particulate airborne contaminants. She has recently switched to a different kind of mask that is more effective. This has seemed to help. She does smoke. She denies any known history of asthma or COPD. She has had problems in prior winter seasons with wheezing and shortness of breath. She has been treated with steroids in the past. Allergies and Home Medications Allergies Coded Allergies: No Known Drug Allergies (Unverified , 09/07/18) Home Medications Docusate Sodium 100 Mg Capsule, 100 MG PO BID Prescribed by: MAGDALENA ADKINS on 09/05/18 0736 Ibuprofen 800 Mg Tablet, 800 MG PO Q6H PRN for PAIN Prescribed by: MAGDALENA ADKINS on 09/05/18 0736 Oxycodone HCl/Acetaminophen 1 Each Tablet, 1 TAB PO Q4H Prescribed by: MAGDALENA ADKINS on 09/05/18 0736 Prednisone 20 Mg Tab, 40 MG PO DAILY Prescribed by: YOSVANY JAIME on 03/07/19 1307 Patient Home Medication List Home Medication List Reviewed: Yes Review of Systems Review of Systems Constitutional: no symptoms reported EENTM: no symptoms reported Respiratory: see HPI Cardiovascular: no symptoms reported Gastrointestinal: no symptoms reported Genitourinary: no symptoms reported : No Musculoskeletal: no symptoms reported Skin: no symptoms reported Psychiatric/Neurological: No Symptoms Reported Hematologic/Lymphatic: No Symptoms Reported Immunological/Allergic: no symptoms reported Past Ikjgotl-Volyqu-Hxoinu Hx Past Med/Social Hx: Reviewed Nursing Past Med/Soc Hx Patient Social History Alcohol Use: Rarely Uses Alcohol Beverage of Choice: Whiskey, Wine Recreational Drug Use: No Smoking Status: Current Everyday Smoker Type Used: Cigarettes Recent Foreign Travel: No Contact w/Someone Who Travel: No Recent Infectious Disease Expo: No Recent Hopitalizations: No Physical Abuse: No Sexual Abuse: No Mistreated: No Fear: No Immunizations Up To Date Tetanus Booster (TDap): More than 5yrs PED Vaccines UTD: Yes Seasonal Allergies Seasonal Allergies: No Past Medical History Surgeries: No Respiratory: No Cardiac: No Neurological: No Reproductive Disorders: Yes (Dysplasia, 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 Reproductive Disorders: Denies CUSTODIAL AIDE History: IUD 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 0.6oz. 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, no motor/sensory deficits, alert, normal mood/affect, oriented x 3 Skin: normal color, warm/dry Progress/Results/Core Measures Suspected Sepsis Recent Fever Within 48 Hours: No Infection Criteria Present: None New/Unexplained Altered Menta: No Sepsis Screen: No Definite Risk SIRS Temperature: Pulse: 81 Respiratory Rate: 18 Blood Pressure 126 /87 Mean: 100 Results/Orders My Orders Orders - YOSVANY CAPONE MD Chest Pa/Lat (2 View) (03/07/19 17:46) Albuterol/Ipra Inhalation Soln (Duoneb I (03/07/19 18:00) Svn Small Volume Nebulizer (03/07/19 17:47) Prednisone Tablet (Deltasone Tablet) (03/07/19 18:15) Medications Given in ED Current Medications Medications Dose Ordered Sig/Agustina Route Start Time Stop Time Status Last Admin Dose Admin Prednisone 40 mg ONCE ONCE PO 03/07/19 18:15 03/07/19 18:16 DC 03/07/19 18:21 40 MG Vital Signs/I&O 03/07/19 03/07/19 17:17 18:35 Temp 36.9 Pulse 81 69 Resp 18 18 B/P (MAP) 126/87 (100) 150/81 Pulse Ox 95 97 O2 Delivery Room Air Room Air Capillary Refill : Less Than 3 Seconds Blood Pressure Mean: 100 POS Progress Note : Progress Note Chest x-ray was unremarkable. DuoNeb treatment was administered with some improvement in wheezing. She was given prednisone 40 mg orally followed by a prescription. She was strongly advised to quit smoking and establish with a primary care provider soon as possible. Diagnostic Imaging Diagonstic Imaging: Xray Plain Films/CT/US/NM/MRI: chest Comments Chest x-ray viewed by me and report reviewed. See report below: NAME: JENN HYDE [facility] REC#: [id number] PT STATUS: DEP ER : 1990 PHYSICIAN: YOSVANY CAPONE MD ADMIT DATE: 03/07/19/ER Signed Date of Exam:03/07/19 CHEST PA/LAT (2 VIEW) INDICATION: Shortness of breath and cough. PA and lateral chest FINDINGS: Heart size and pulmonary vascularity are normal. Lungs are clear. There are no effusions or pneumothoraces. IMPRESSION: Negative chest. Dictated by: Dictated on workstation # [id number] Dict: 03/07/191807 Trans: 03/07/191850 [id number] Interpreted by: CATHY JOHNSON MD Electronically signed by: CATHY JOHNSON MD 03/07/191850 Departure Impression Primary Impression: Bronchospasm, acute Disposition: 01 HOME, SELF-CARE Condition: Improved Departure-Patient Inst. Decision time for Depature: 18:23 Referrals: NO,LOCAL PHYSICIAN (PCP/Family) Primary Care Physician Patient Instructions: How to Use Your Metered Dose Inhaler (Adults), Quitting Smoking Add. Discharge Instructions: Quit smoking immediately and completely. Continuing to smoke may result in severe long-term health consequences. While you're quitting, you may use nicotine replacement products such as lozenges, patches, or gum. Continue to use an appropriate respirator at work to filter out particular matter and avoid fumes is much as possible. Please work with your employer to minimize exposures. Complete the prednisone as prescribed. Try to take prednisone early in the day with food or milk to avoid sleep disturbance and stomach upset. Establish with a primary care provider as soon as possible. You may need further testing to determine the cause of your breathing problems. You may need further testing for possible underlying illness such as asthma or COPD. You may continue to use your inhaler up to 4 puffs every 4 hours as needed for shortness of breath or wheezing. Please return to the emergency room if you have worsening symptoms despite these treatments. All discharge instructions reviewed with patient and/or family. Voiced understanding. Scripts Prednisone (Prednisone) 20 Mg Tab 40 MG PO DAILY, #8 TAB 0 Refills Prov: YOSVANY CAPONE MD 03/07/19 YOSVANY CAPONE MD Mar 07, 2019 18:27 POS
[2019-03-07 18:35] VITALS: BP 150/81
== END 2019-03-07 18:35 | disposition home or self-care (01) ==
LOC: EDUNIT# 16:46 → ER 16:47
DX: J98.01 Acute bronchospasm (principal); F17.210 Nicotine dependence, cigarettes, uncomplicated
CPT/HCPCS: 71046

== ENCOUNTER 2020-12-20 08:06 | Outpatient (RCR) | payer BC, MEDICAID ==
[~2020-12-20] VITALS: Ht 157.5 cm; Wt 69.7 kg
== END 2020-12-20 09:17 | disposition home or self-care (01) ==
LOC: PREOP 08:06
PROVIDERS: ATTEND Surgery
DX: Z01.818 Encounter for other preprocedural examination (principal); R13.10 Dysphagia, unspecified; Z20.822 Contact with and (suspected) exposure to COVID-19
CPT/HCPCS: 87635

== ENCOUNTER → 2020-12-20 | Outpatient (CLI) | payer BC, MEDICAID ==
[~2020-12-20] MED LIST changes: -OXYC-465 PO; +OXYC-556 PO; +PRD20T PO
--- NOTE | 2020-12-20 08:44 | Diagnostic Imaging Report ---
PROCEDURE: US Gallbladder. TECHNIQUE: Multiple real-time grayscale images were obtained over the right upper quadrant in various projections. INDICATION: Right upper quadrant pain. FINDINGS: Liver is normal in size. There is no biliary duct dilatation. There is hepatopedal flow in the main portal vein. Common bile duct measures 3 mm. There is no cholelithiasis, gallbladder wall thickening or pericholecystic fluid. Pancreas is obscured by bowel gas. Aorta is nonaneurysmal. The IVC is patent. Right kidney is normal. There is no ascites. Clinton sign is negative. IMPRESSION: Unremarkable right upper quadrant ultrasound Dictated by: Dictated on workstation # [id number]
== END ==
LOC: RAD 06:49
PROVIDERS: ATTEND Surgery
DX: R10.11 Right upper quadrant pain (principal)
CPT/HCPCS: 76705

== ENCOUNTER 2020-12-25 10:43 | Day surgery (SDC) | payer BC, MEDICAID ==
[~2020-12-25] VITALS: Ht 157.5 cm; Wt 69.7 kg
[2020-12-25] MEDS ORDERED: LACTATED RINGERS 1,000 ML IV STA (10:54)
[2020-12-25] MEDS ORDERED: HURRICAINE EXT TUBE (BENZOCAINE) XX PRN (11:00)
[2020-12-25 11:15] VITALS: BP 119/74
--- NOTE | 2020-12-25 11:36 | Progress Note-Pre Operative ---
Pre-Operative Progress Note H&P Reviewed The H&P was reviewed, patient examined and no changes noted. Time Seen by Provider: 11:35 Date H&P Reviewed: Dec 25, 2020 Time H&P Reviewed: 11:35 Pre-Operative Diagnosis: dysphagia, epigastric pain KITTY SHETH DO Dec 25, 2020 11:36
[2020-12-25] MEDS ORDERED: proPOfol 200 MG/20 ML (DIPRIVAN) VIAL IV ONE (13:25)
[2020-12-25] MEDS ORDERED: MIDAZOLAM 2 MG/2 ML (VERSED) VIAL ONE (13:25)
--- NOTE | 2020-12-25 13:39 | Progress Note-Post Operative ---
Post-Operative Progess Note Surgeon (s)/Multimedia Editor (s) Surgeon KITTY SHETH DO Multimedia Editor: none Pre-Operative Diagnosis dysphagia, epigastric pain Post-Operative Diagnosis Gastritis Small hiatal hernia esophagitis Procedure & Operative Findings Date of Procedure 12/25/20 Procedure Performed/Findings EGD with biopsy PROCEDURE NOTE: After informed consent was obtained, the patient was brought to the endoscopy suite, placed in bed in left lateral decubitus position. She was administered IV sedation by the SUPERVISOR ROLLING ROOM who then monitored vitals the entire time, heart rate, blood pressure and pulse ox and the scope was inserted down the mouth through the esophagus into the stomach. On the way down, noted some mild esophagitis, took a picture, pushed into the stomach, pushed past the antrum into the duodenum. Duodenum looked good. Pulled back and did a biopsy of antrum, then retroflexed the scope, saw small hiatal hernia, took a picture of this and then pulled the scope into the GE junction and then did a biopsy. Pushed the scope back into the stomach, suctioned all the air out of the stomach. At this point pulled the scope up the esophagus and out the mouth. The patient tolerated the procedure, and she recovered in endoscopy suite. Anesthesia Type IV sedation by SUPERVISOR ROLLING ROOM Estimated Blood Loss Estimated blood loss (mL): scant Specimens/Packing Specimens Removed antral bx body of stomach bx GE jxn bx KITTY SHETH DO Dec 25, 2020 13:39
--- NOTE | 2020-12-25 13:39 | Endoscopy Discharge Instruct ---
Endo Procedure/Findings Findings 1.: Gastritis 2.: Hiatal Hernia 3.: Other Findings (esophagitis) Discharge Instructions - Activity: You might feel a little sleepy until tomorrow. This is due to the medicine you received to relax you. Until tomorrow, you should: NOT drive a car, operate machinery or power tools. NOT drink any alcoholic beverages. NOT make any important decisions or sign importortant papers. Do not return to work until tomorrow, unless otherwise instructed. Resume previous activities tomorrow. Diet: Start by taking liquids. If you tolerate liquids, advance to solid food. 1.: EGD in 3 years Notify Physician - If you experience excessive bleeding, unusual abdominal pain, fever, or chest pain, contact your doctor immediately. KITTY SHETH DO Dec 25, 2020 13:39
[2020-12-25 13:45] VITALS: BP 139/90
[2020-12-25 13:50] VITALS: BP 133/89
--- NOTE | 2020-12-25 14:01 | Anesthesia-General Post-Op ---
MAC Patient Condition Mental Status/LOC: Same as Preop Cardiovascular: Satisfactory Nausea/Vomiting: Absent Respiratory: Satisfactory Pain: Controlled Complications: Absent Post Op Complications Complications None Follow Up Care/Instructions Patient Instructions None needed. Anesthesiology Discharge Order Discharge Order Patient is doing well, no complaints, stable vital signs, no apparent adverse anesthesia problems. BLAYNE ARGUETA DO Dec 25, 2020 14:01
[2020-12-25 14:15] VITALS: BP 127/92
[2020-12-25 14:25] VITALS: BP 127/92
== END 2020-12-25 14:25 | disposition home or self-care (01) ==
LOC: ENDO 10:43
PROVIDERS: ATTEND Surgery
DX: K29.70 Gastritis, unspecified, without bleeding (principal); K20.90 Esophagitis, unspecified without bleeding; K44.9 Diaphragmatic hernia without obstruction or gangrene; K31.89 Other diseases of stomach and duodenum; R13.10 Dysphagia, unspecified; F32.9 Major depressive disorder, single episode, unspecified; F17.210 Nicotine dependence, cigarettes, uncomplicated; K58.2 Mixed irritable bowel syndrome; Z79.899 Other long term (current) drug therapy; Z83.3 Family history of diabetes mellitus; Z80.3 Family history of malignant neoplasm of breast
CPT/HCPCS: 84703; 88305

== ENCOUNTER → 2021-01-04 | Outpatient (CLI) | payer BC, MEDICAID ==
[~2021-01-04] MED LIST changes: +CATHETER FLUSH 10 ML SYR IV PRN
--- NOTE | 2021-01-04 14:14 | Diagnostic Imaging Report ---
INDICATION: Right upper quadrant pain COMPARISON: Gallbladder ultrasound from 12/20/2020 TECHNIQUE: Anterior scintigraphic imaging of the abdomen was performed after the intravenous administration of 4.33 mCi Tc-99m Choletec. FINDINGS: The upper abdomen was imaged for 45 minutes with the gamma camera. There is prompt homogeneous uptake of radiopharmaceutical by the liver. There is activity in the common duct and gallbladder by 20 minutes. Small bowel activity is seen by 45 minutes. After 60 minutes, the patient received 8 oz of ensure by mouth. After 60 minutes, the gallbladder ejection fraction was calculated to be 45% which is normal. IMPRESSION: 1. Patent common and cystic bile ducts. 2. No gallbladder dysfunction. Dictated by: Dictated on workstation # [id number]
== END ==
LOC: CARD 10:00
PROVIDERS: ATTEND Surgery
DX: R10.11 Right upper quadrant pain (principal)
CPT/HCPCS: 78227; A9537

== ENCOUNTER 2021-11-29 16:16 | Emergency (ER) | payer OTHER, MEDICAID ==
[~2021-11-29] VITALS: Ht 160 cm; Wt 70.3 kg
[~2021-11-29 16:16] MED LIST changes: -CATHETER FLUSH 10 ML SYR IV PRN
[2021-11-29] MEDS ORDERED: fentaNYL INJ 100 MCG/2 ML AMP IVP STA (16:53)
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
[2021-11-29 17:07] LABS: BASOPHILS % (AUTO) 0 % (0-10); EOSINOPHILS # (AUTO) 0.3 10^3/uL (0.0-0.3); EOSINOPHILS % (AUTO) 3 % (0-10); HEMATOCRIT 41 % (35-52); HEMOGLOBIN 13.9 g/dL (11.5-16.0); LYMPHOCYTES # (AUTO) 1.9 10^3/uL (1.0-4.0); LYMPHOCYTES % (AUTO) 20 % (12-44); MEAN CORPUSCULAR HEMOGLOBIN 32 pg (25-34); MEAN CORPUSCULAR HGB CONC 34 g/dL (32-36); MEAN CORPUSCULAR VOLUME 94 fL (80-99); MEAN PLATELET VOLUME 10.3 fL (9.0-12.2); MONOCYTES # (AUTO) 0.8 10^3/uL (0.0-1.0); MONOCYTES % (AUTO) 8 % (0-12); NEUTROPHILS # (AUTO) 6.4 10^3/uL (1.8-7.8); NEUTROPHILS % (AUTO) 68 % (42-75); PLATELET COUNT 251 10^3/uL (130-400); WHITE BLOOD COUNT 9.5 10^3/uL (4.3-11.0)
[2021-11-29] MEDS ORDERED: NS 100 ML (IVPB) BAG IV ONE (17:15)
[2021-11-29] MEDS ORDERED: CATHETER FLUSH 10 ML SYR IV PRN (17:15)
[2021-11-29] MEDS ORDERED: IOHEXOL 350 MG/ML 100 ML (OMNIPAQUE 350) VIAL IV ONE (17:15)
[2021-11-29 17:22] LABS: ALBUMIN 4.3 GM/DL (3.2-4.5); POTASSIUM 3.9 MMOL/L (3.6-5.0)
[2021-11-29 17:23] LABS: CALCIUM 9.1 MG/DL (8.5-10.1)
[2021-11-29 17:26] LABS: BILIRUBIN,TOTAL 0.7 MG/DL (0.1-1.0)
[2021-11-29 17:28] LABS: CREATININE SERUM 0.68 MG/DL (0.60-1.30)
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
[2021-11-29] MEDS ORDERED: HYDROcodone/APAP 5 MG/325 MG (LORTAB) TAB PO ONE (18:15)
[2021-11-29] MEDS ORDERED: morphine INJ 10 MG/ML 1ML (SYR OR VIAL) IVP ONE (18:15)
[2021-11-29] MEDS ORDERED: ACHD5005 PO (18:16)
[2021-11-29 18:28] VITALS: BP 123/77
== END 2021-11-29 18:28 | disposition home or self-care (01) ==
LOC: EDUNIT# 16:16 → ER 16:18
DX: S05.12XA Contusion of eyeball and orbital tissues, left eye, initial encounter (principal); S20.20XA Contusion of thorax, unspecified, initial encounter; S70.12XA Contusion of left thigh, initial encounter; S70.11XA Contusion of right thigh, initial encounter; S10.93XA Contusion of unspecified part of neck, initial encounter; H11.32 Conjunctival hemorrhage, left eye; S20.211A Contusion of right front wall of thorax, initial encounter; F17.210 Nicotine dependence, cigarettes, uncomplicated; Y04.2XXA Assault by strike against or bumped into by another person, initial encounter
CPT/HCPCS: 36415; 70450; 70486; 70498; 71260; 80053; 84703; 85025